=== PATIENT | male | born 2000 | race Caucasian/White ===

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

== ENCOUNTER 2020-09-05 13:44 | Emergency (ER) | payer BC, OTHER ==
[~2020-09-05] VITALS: Ht 177.8 cm; Wt 70.1 kg
[2020-09-05 14:37] LABS: BASOPHILS % (AUTO) 1 % (0-1); EOSINOPHILS % (AUTO) 2 % (1-7); LYMPHOCYTES % (AUTO) 35 % (22-44); MEAN CORPUSCULAR HEMOGLOBIN 29.1 pg (27.5-34.5); MEAN CORPUSCULAR HGB CONC 33.7 g/dL (33.2-36.2); MEAN PLATELET VOLUME 7.6 fL (7.4-10.4); MONOCYTES % (AUTO) 9 % (2-9); NEUTROPHILS % (AUTO) 53 % (42-75); PLATELET COUNT 244 x10^3/uL (130-400); RED BLOOD COUNT 5.34 x10^6/uL (4.38-5.82); RED CELL DISTRIBUTION WIDTH 13.5 % (9.4-14.8)
[2020-09-05 14:43] LABS: MD NO
[2020-09-05 14:45] LABS: ALBUMIN 4.7 g/dL (3.4-5.0); CALCIUM 9.7 mg/dL (8.5-10.1)
[2020-09-05 14:48] LABS: ALANINE AMINOTRANSFERASE 22 U/L (12-78); ALKALINE PHOSPHATASE 105 U/L (45-117); BILIRUBIN,TOTAL 0.5 mg/dL (0.2-1.0); CREATININE 0.74 mg/dL (0.7-1.3); TOTAL PROTEIN 7.6 g/dL (6.4-8.2)
[2020-09-05 15:00] LABS: ANION GAP 3 mmol/L (5-15); CHLORIDE 108 mmol/L (98-107)
--- NOTE | 2020-09-05 16:13 | NUR ---
stone layer note: Pt to room from lobby.
[2020-09-05 17:48] VITALS: BP 118/61
== END 2020-09-05 17:50 | disposition home or self-care (01) ==
LOC: ED 14:53
DX: J02.9 Acute pharyngitis, unspecified (principal); Z20.828 Contact with and (suspected) exposure to other viral communicable diseases; R10.84 Generalized abdominal pain; R51.9 Headache, unspecified
CPT/HCPCS: 36415; 80053; 85025; 87635; 99283